=== PATIENT | female | born 1950 | race Caucasian/White ===

== ENCOUNTER → 2017-11-07 18:32 | Outpatient (CLI) | payer MEDICARE ==
[~2017-11-07 18:32] MED LIST: ADVIL200 MG PO; ASPIRIN EC81 M1 PO; HYDROCODON-ACE1 EAC7 PO; LIPITOR80 MG PO
== END | disposition home or self-care (01) ==
LOC: D.LABREF 18:32
DX: R31.0 Gross hematuria (principal)

== ENCOUNTER 2017-11-09 05:55 | Day surgery (SDC) | payer MEDICARE ==
[~2017-11-09] VITALS: Ht 170.2 cm; Wt 85.9 kg
--- NOTE | ~2017-11-09 | OP ---
PATIENT NAME: BALTAZAR ANDERSEN MEDICAL RECORD: [id number] :51 LOCATION:D.MS [id number] ADMISSION DATE: SURGEON: STEVE TRAYLOR MD DATE OF OPERATION: 11/09/2017 SURGEON: Steve Traylor MD ANESTHESIA: General anesthesia by Ijeoma Cabral CRNA. PREOPERATIVE DIAGNOSIS: Bladder tumor of 2 cm. POSTOPERATIVE DIAGNOSES: Bladder tumor of 3 cm due to lateral extension of tumor. PROCEDURES: Cystoscopy, transurethral resection of bladder tumor 3 cm. FINDINGS: Large fungating tumor on the right posterior wall about 3 cm in size due to the lateral extension of the tumor. Left ureteral orifice was noted, but I cannot see the right ureteral orifice as it is obscured by the tumor. SPECIMENS: Bladder tumor. ESTIMATED BLOOD LOSS: Minimal. CLINICAL HISTORY: This is a 67-year-old female, who is a 1 pack per day smoker for 40 years. She developed painless gross hematuria about 1 week ago. She went to see her family physician. Urine culture grew Klebsiella pneumoniae, which had not been treated. I therefore started her on Bactrim when I saw her in the office a couple of days ago. A CT scan of the abdomen and pelvis was done and this showed a 2-cm mass in the posterior right bladder wall. She comes today to have the tumor resected. She is not allergic to any medications. She was given ampicillin and sulbactam 3 grams IV network applications specialist to the OR. DESCRIPTION OF PROCEDURE: The patient was given induction of general anesthesia. She was then placed in the dorsal lithotomy position and prepped and draped. We inserted the resectoscope using an obturator. Cystoscopy was then performed using a 30-degree lens with sterile water for irrigation. Findings are as outlined above. The large tumor on the right side blocked the view of the right ureteral orifice and may involve the right ureteral orifice. There is not only a large mass propagating out into the bladder lumen, there was also spread of this mass laterally along the bladder wall. The 26-[place] monopolar resection loop was used with sterile water for irrigation. The mass of the tumor was taken down from the top and then the base of the tumor was resected. I made sure that I got deep into the bladder muscle wall to entirely get samples of that tissue. In fact perivesical fat could be seen in the significant area of the resection. The tumor itself was extremely vascular and as I encountered arterial bleeding, I had to cauterize the bleeding points. As we resected, we removed the tumor specimens from the bladder using either the loop to remove it or an Ellik evacuator. Finally, the tumor was entirely resected. No arterial bleeding was seen. Any venous bleeding that I could detect was also cauterized. Looking again at the end of the case, I could see the left ureteral orifice. I had never been able to see the right ureteral orifice and I cannot see it now post-resection. I will obtain an ultrasound of the right kidney to be sure that no hydronephrosis is developing. At the end of the case, once cystoscopy verified that there was no further tumor, specimens OPERATIVE REPORT [id number] BALTAZAR ANDERSEN floating around. A 22-[place]ayan 3-way Gary catheter was inserted. The balloon was inflated with 10 cc of sterile water. Bladder irrigation with normal saline was started. She will be put in 23-hour observation for continuous bladder irrigation until the bladder drainage clears up. TRANSINT:[id number] Voice Confirmation ID: [id number] DOCUMENT ID: [id number] STEVE TRAYLOR MD at 2120 CC: [id number] DICTATION DATE: 11/09/17 1534 DRAWER IN PLAIN LOOM: 11/09/17 1757 [facility] [address] [place] [address]
[~2017-11-09 05:55] MED LIST changes: -HYDROCODON-ACE1 EAC7 PO
[2017-11-09 08:00] VITALS: BP 107/65; BMI 29.6
[2017-11-09 16:34] VITALS: BP 157/65
[2017-11-09 17:09] VITALS: Ht 170.2 cm; Wt 85.9 kg
[2017-11-09 22:12] VITALS: BP 118/49
[2017-11-10 01:32] VITALS: BP 132/50
[2017-11-10 06:33] VITALS: BP 94/35
[2017-11-10 09:20] VITALS: BP 106/45
[2017-11-10] MEDS ORDERED: HYDROCODON-ACE1 EAC7 PO (12:12)
[2017-11-10 12:20] VITALS: BP 111/49
== END 2017-11-10 13:00 | disposition home or self-care (01) ==
LOC: D.OPS 05:55 → D.PAN 08:45 → D.OPS 11:00 → D.MS 16:09 → D.OPS 11-10 13:00
DX: C67.4 Malignant neoplasm of posterior wall of bladder (principal); F17.200 Nicotine dependence, unspecified, uncomplicated; I10 Essential (primary) hypertension; J44.9 Chronic obstructive pulmonary disease, unspecified; N30.01 Acute cystitis with hematuria; Z01.812 Encounter for preprocedural laboratory examination

== ENCOUNTER → 2017-11-21 18:49 | Outpatient (CLI) | payer MEDICARE ==
[2017-11-09 17:09] VITALS: BMI 29.6
[~2017-11-21 18:49] MED LIST changes: +HYDROCODON-ACE1 EAC7 PO
[2017-11-28 17:11] LABS: AEROBE ID Final report (())
[2017-12-01 16:15] LABS: AEROBE ID Final report (())
== END | disposition home or self-care (01) ==
LOC: D.LABREF 18:49
PROVIDERS: Urology
DX: N39.0 Urinary tract infection, site not specified (principal)

== ENCOUNTER 2018-02-09 05:07 | Day surgery (SDC) | payer MEDICARE ==
[~2018-02-09] VITALS: Ht 170.2 cm; Wt 86.2 kg
--- NOTE | ~2018-02-09 | OP ---
PATIENT NAME: BATLAZAR ANDERSEN MEDICAL RECORD: [id number] :51 LOCATION:D.OPS ADMISSION DATE: SURGEON: STEVE TRAYLOR MD DATE OF OPERATION: 02/09/2018 SURGEON: Steve Traylor MD ANESTHESIA: MAC by Steve Dickerson. DIAGNOSIS: Previous history of bladder cancer. PROCEDURE: Cystoscopy. FINDINGS: No bladder tumors. Previous resection of the right ureteral orifice to the posterior wall of the bladder. ESTIMATED BLOOD LOSS: None. CLINICAL HISTORY: This is a 67-year-old female who had painless gross hematuria in September of last year. In October, I saw the patient and we resected a 3 cm tumor surrounding the right ureteral orifice. She comes back today for surveillance cystoscopy. She is not allergic to any medication. She was given Ancef post adoption coordinator to the OR. DESCRIPTION OF PROCEDURE: The patient was given IV sedation. She was then placed in the dorsal lithotomy position and prepped and draped. A 17-Omani cystoscope with 30-degree lens was used for visualization. Her previous resection has removed the right ureteral orifice. The ureter inserts into the bladder through the posterior wall. There is no stenosis here. The left ureteral orifice was normal. No bladder tumors were seen. The patient was then awakened and brought to the preoperative holding area. I will see her back in 3 months' time to repeat the surveillance cystoscopy. TRANSINT:[id number] Voice Confirmation ID: [id number] DOCUMENT ID: [id number] STEVE TRAYLOR MD at 1132 CC: [id number] DICTATION DATE: 02/09/18 0803 OUTSIDE PARTS SALESMAN: 02/09/18 0924 [facility] 02/09/18 [id number] [place] [address]
[2018-02-09 05:55] LABS: BASOPHILS 0.8 % (0-2); EOSINOPHILS 1.7 % (0-7); HEMOGLOBIN 13.2 g/dL (12-16); IMMATURE GRANULOCYTES 0.4 % (0-5); LYMPHOCYTES 18.4 % (15-50); MCH 29.1 pg (26.0-34.0); MCHC 33.8 g/dL (31.0-37.0); MCV 86.1 fL (80.0-100.0); MEAN PLATELET VOLUME 9.9 fL (7.4-10.4); MONOCYTES 12.2 % (2-11); NEUTROPHILS 66.5 % (40-80); PLATELET COUNT 189 10x3/uL (130-400); RBC 4.53 10x6/uL (4.00-5.40); RDW 14.1 % (11.5-14.5); WBC 5.2 10x3/uL (4.8-10.8)
[2018-02-09 06:24] VITALS: BP 103/68; Ht 170.2 cm; Wt 86.2 kg
[2018-02-09 06:29] LABS: PROTIME 12.8 SECONDS (11.6-15.0)
[2018-02-09 06:30] LABS: APTT 35.1 SECONDS (22.8-39.4)
== END 2018-02-09 09:10 | disposition home or self-care (01) ==
LOC: D.OPS 05:07 → D.PAN 07:30 → D.OPS 07:30
PROVIDERS: Anesthesiology
DX: Z85.51 Personal history of malignant neoplasm of bladder (principal); Z01.812 Encounter for preprocedural laboratory examination

== ENCOUNTER 2018-05-11 05:09 | Day surgery (SDC) | payer MEDICARE ==
[~2018-05-11] VITALS: Ht 170.2 cm; Wt 84.8 kg
--- NOTE | ~2018-05-11 | OP ---
PATIENT NAME: BALTAZAR ANDERSEN MEDICAL RECORD: [id number] :51 LOCATION:D.OPS ADMISSION DATE: SURGEON: STEVE TRAYLOR MD DATE OF OPERATION: 05/11/2018 SURGEON: Steve Traylor MD ANESTHESIA: MAC by Ijeoma Cabral CRNA. PREOPERATIVE DIAGNOSIS: History of bladder cancer. PROCEDURE: Cystoscopy. FINDINGS: No bladder cancer seen. Scar from previous resection around the right ureteral orifice seen. Ureter now opens more proximally in the bladder. SPECIMENS: None. BLOOD LOSS: None. CLINICAL HISTORY: This is a 68-year-old female, who is a former smoker. She had a bladder tumor resection last year. This was around the right ureteral orifice, which was resected and now the ureter opens more proximally into the bladder. She comes today for surveillance cystoscopy. She has no allergies to medication. The patient was given Ancef microsoft infrastructure consultant to the OR. DESCRIPTION OF PROCEDURE: The patient was given IV sedation. She was placed in the dorsal lithotomy position and prepped and draped. A 17-[place]i cystoscope with 30-degree lens was used for visualization. We did not see any bladder tumors. I will space her of surveillance cystoscopy timed out to every 6 months from now. TRANSINT:[id number] Voice Confirmation ID: [id number] DOCUMENT ID: [id number] STEVE TRAYLOR MD at 1048 CC: [id number] DICTATION DATE: 05/11/18 0800 INSURANCE SALESPERSON: 05/11/18 1030 [facility] 05/11/18 [place] [id number]
[2018-05-11 05:28] LABS: HEMATOCRIT 42.8 % (36.0-48.0); HEMOGLOBIN 14.5 g/dL (12-16); MCH 28.9 pg (26.0-34.0); MCHC 33.9 g/dL (31.0-37.0); MCV 85.3 fL (80.0-100.0); MEAN PLATELET VOLUME 9.7 fL (7.4-10.4); RBC 5.02 10x6/uL (4.00-5.40); RDW 14.7 % (11.5-14.5); WBC 6.7 10x3/uL (4.8-10.8)
[2018-05-11 05:50] VITALS: BP 144/75; Ht 170.2 cm; Wt 84.8 kg
== END 2018-05-11 09:40 | disposition home or self-care (01) ==
LOC: D.OPS 05:09 → D.PAN 07:30 → D.OPS 07:30
PROVIDERS: Anesthesiology
DX: Z48.816 Encounter for surgical aftercare following surgery on the genitourinary system (principal); Z85.51 Personal history of malignant neoplasm of bladder; Z72.0 Tobacco use

== ENCOUNTER 2018-11-09 06:26 | Day surgery (SDC) | payer MEDICARE ==
[~2018-11-09] VITALS: Ht 170.2 cm; Wt 87.1 kg
[2018-11-09 06:51] LABS: BASOPHILS 1.1 % (0-2); EOSINOPHILS 1.9 % (0-7); HEMATOCRIT 38.9 % (36.0-48.0); IMMATURE GRANULOCYTES 0.4 % (0-5); MCH 28.8 pg (26.0-34.0); MCHC 33.4 g/dL (31.0-37.0); MCV 86.1 fL (80.0-100.0); MONOCYTES 8.6 % (2-11); PLATELET COUNT 220 10x3/uL (130-400); RBC 4.52 10x6/uL (4.00-5.40); RDW 14.4 % (11.5-14.5); WBC 5.4 10x3/uL (4.8-10.8)
[2018-11-09 07:02] LABS: APTT 36.9 SECONDS (22.8-39.4); PROTIME 12.7 SECONDS (11.6-15.0)
[2018-11-09 07:52] LABS: ALBUMIN 3.6 g/dL (3.4-5.0); ALKALINE PHOSPHATASE 76 U/L (46-116); ALT (SGPT) 26 U/L (10-68); BILIRUBIN - TOTAL 0.45 mg/dL (0.2-1.3); CALC OSMOLALITY 287 mosm/kg (275-300); CALCIUM 9.2 mg/dL (8.5-10.1); CARBON DIOXIDE 25.7 mmol/L (21.0-32.0); CHLORIDE - SERUM 107 mmol/L (98-107); CREATININE - SERUM 0.7 mg/dL (0.6-1.3); GLUCOSE 94 mg/dL (74-106); POTASSIUM - SERUM 4.5 mmol/L (3.5-5.1); PROTEIN - SERUM 7.5 g/dL (6.4-8.2); SODIUM 143 mmol/L (136-145); UREA NITROGEN 22 mg/dL (7-18); eGFR NON AFRICAN AMERICAN 88 mL/min (90-120)
[2018-11-09 08:16] VITALS: BP 111/61; Ht 170.2 cm; Wt 87.1 kg
--- NOTE | 2018-11-09 11:15 | NUR ---
REC'D FROM RR. FAMILY AT BEDSIDE. COFFEE BROUGHT TO PT.
--- NOTE | 2018-11-09 11:35 | NUR ---
AMBULATED TO BATHROOM AND VOIDED WITHOUT DIFFICULTY. FL TRAY BROUGHT TO PT.
--- NOTE | 2018-11-09 11:45 | NUR ---
EATING FL DIET. DENIES FURTHER NEEDS.
--- NOTE | 2018-11-09 11:53 | OP ---
PATIENT NAME: BALTAZAR ANDERSEN MEDICAL RECORD: [id number] :51 LOCATION:D.OPS ADMISSION DATE: SURGEON: STEVE TRAYLOR MD DATE OF OPERATION: 11/09/2018 SURGEON: Steve Traylor MD ANESTHESIA: TIVA by Florencio Tesfaye CRNA DIAGNOSIS: History of bladder cancer. PROCEDURES: Cystoscopy and bladder biopsy. SPECIMEN: Bladder biopsy. FINDINGS: Right ureteral orifice was quite proximal due to previous resection of the intramural tunnel. Normal left ureteral orifice. No obvious bladder tumor present. There was a small 2-mm polyp on the anterior wall of the bladder. This was removed using the biopsy forceps. SPECIMEN: Bladder biopsy. BLOOD LOSS: None. CLINICAL HISTORY: This is a 68-year-old female who had a low-grade noninvasive bladder cancer resected from the region of the right ureteral orifice on 11/09/2017. She has not seen any hematuria since then and she has stopped smoking in the interim. She is having her every six-month surveillance cystoscopy done today. She does not have any allergies to medication. She was given Ancef on-call to the OR. DESCRIPTION OF PROCEDURE: The patient was given IV sedation. She was then placed into dorsal lithotomy position and prepped and draped. A 17-[place]izen [place] cystoscope with 30-degree lens was used for visualization. The findings are as outlined above. We then switched to a 21-[place]izen [place] cystoscope, and using a flexible grasping forceps, the small little polyp on the anterior wall of the bladder was removed and sent to pathology for biopsy. The bladder was then emptied through the scope and the scope was removed. I will see her in followup next week to review the pathology with her. If she does not have any cancer on the biopsy, then we will change her followup cystoscopy to every one year. TRANSINT:[id number] Voice Confirmation ID: [id number] DOCUMENT ID: [id number] STEVE TRAYLOR MD at 1153 CC: [id number] DICTATION DATE: 11/09/[address] VENDOR: 11/09/18 1148 REG [facility] [address] [place] [address]
--- NOTE | 2018-11-09 12:15 | NUR ---
WRITTEN AND VERBAL DC INST GIVEN TO PT. VERBALIZED UNDERSTANDING. TOLERATED FL TRAY. IV DC'D WITH CATHETER INTACT.
--- NOTE | 2018-11-09 12:25 | NUR ---
DC'D HOME WITH FAMILY VIA PRIVATE VEHICLE. TAKEN TO VEHICLE VIA WC. STABLE AT TIME OF DC.
== END 2018-11-09 12:25 | disposition home or self-care (01) ==
LOC: D.OPS 06:26 → D.PAN 09:00 → D.OPS 09:00 → D.PAN 12:15 → D.OPS 12:15
PROVIDERS: Anesthesiology
DX: Z85.51 Personal history of malignant neoplasm of bladder (principal); Z01.812 Encounter for preprocedural laboratory examination